=== PATIENT | female | born 1965 | race Caucasian/White ===

== ENCOUNTER → 2018-03-15 13:38 | Outpatient (CLI) | payer OTHER, SELFPAY ==
--- NOTE | 2018-03-15 | DI.MG.S_ITS ---
BILATERAL DIGITAL SCREENING MAMMOGRAM 3D/2D WITH CAD WITH AUGMENTATION: 03/15/2018 Comparison is made to exams dated: 12/25/2016 mammogram, 11/13/2015 mammogram, and 11/10/2014 mammogram - [facility]. There are scattered fibroglandular elements in both breasts. Current study was also evaluated with a Computer Aided Detection (CAD) system. Bilateral breast implants are intact. No significant masses, calcifications, or other findings are seen in either breast. There has been no significant interval change. IMPRESSION: NEGATIVE There is no mammographic evidence of malignancy. A 1 year screening mammogram is recommended. This exam was interpreted at Station ID: [id number]. NOTE: For mammograms, a report in lay terms will be sent to the patient. Approximately 15% of breast malignancies will not be visualized mammographically. In the management of a palpable breast mass, a negative mammogram must not discourage biopsy of a clinically suspicious lesion. Electronically Signed By: Jesenia davis/sea:03/16/2018 09:46:51 letter sent: Normal Exam ACR BI-RADS Category 1: Negative 3341F
== END ==
PROVIDERS: PCP Family Medicine; Visit Provider Family Medicine
DX: Z12.31 Encounter for screening mammogram for malignant neoplasm of breast (principal)
CPT/HCPCS: 77063; 77067

== ENCOUNTER → 2019-04-25 15:11 | Outpatient (CLI) | payer OTHER, SELFPAY ==
--- NOTE | 2019-04-25 | DI.MG.S_ITS ---
BILATERAL DIGITAL SCREENING MAMMOGRAM 3D/2D WITH CAD WITH AUGMENTATION: 04/25/2019 CLINICAL: Routine screening. Comparison is made to exams dated: 03/15/2018 mammogram, 12/25/2016 mammogram, 07/08/2016 mammogram, 11/22/2015 mammogram, and 11/13/2015 mammogram - [facility]. There are scattered fibroglandular elements in both breasts. Current study was also evaluated with a Computer Aided Detection (CAD) system. Bilateral breast implants are intact. No significant masses, calcifications, or other findings are seen in either breast. There has been no significant interval change. IMPRESSION: NEGATIVE There is no mammographic evidence of malignancy. A 1 year screening mammogram is recommended. This exam was interpreted at Station ID: [id number]. NOTE: For mammograms, a report in lay terms will be sent to the patient. Approximately 15% of breast malignancies will not be visualized mammographically. In the management of a palpable breast mass, a negative mammogram must not discourage biopsy of a clinically suspicious lesion. Electronically Signed By: Chris bear/sea:04/25/2019 16:05:13 letter sent: Normal Exam ACR BI-RADS Category 1: Negative 3341F
== END ==
PROVIDERS: PCP Family Medicine; Visit Provider Family Medicine
DX: Z12.31 Encounter for screening mammogram for malignant neoplasm of breast (principal)
CPT/HCPCS: 77063; 77067

== ENCOUNTER 2019-06-14 21:54 | Emergency (ER) | payer OTHER, SELFPAY ==
[2019-06-14 22:00] VITALS: BP 151/68; PULSE 58; RESP 18; TEMP 37.1; O2SAT 98
--- NOTE | 2019-06-14 22:01 | ED.CHESTPAIN ---
HPI - Chest Pain General Chief Complaint: Chest Pain Stated Complaint: chest pressure on and off Time Seen by Provider: 06/14/19 22:01 Source: patient Mode of arrival: Ambulatory Limitations: no limitations History of Present Illness HPI narrative: This is a 53-year-old female who comes in complaint of chest pain patient states she felt a squeezing like sensation in her heart for 20-30 minutes about 8:30 this evening. She states she was sitting on the couch when this occurred. She laid down it went away. She states it return to 2nd time but not as strong about 30 or 40 minutes later and continued until she arrived here. She states it is currently resolved. She states lying down seems to make it feel better. She felt a little bit dizzy but does not feel like she is going to pass out or off balance. She denies any tingling or weakness in her upper extremities, swelling in her extremities. She had a similar episode 10 years ago states she was ?checked out and everything was fine?. She denies any shortness of breath, no nausea, no vomiting no other symptoms at this time. She also has had a chronic sort of left abdominal pain for several years that has been worked up by her primary care and has not had the cause found. Patient states she did have caffeine today and she sometimes gets dizzy when she has caffeine and has a headache. She denies any other medical issues. Had a hysterectomy and shoulder surgery in the past, none recently. No tobacco, no alcohol or illicit. No family history cardiac issues other than hypertension in her father, no pulmonary issues or embolic issues. Father of colorectal cancer. States her mom smokes tobacco. Related Data Previous Rx's Medication Instructions Recorded estradiol 0.075 mg/24 hr 1 patch TRANSDERMAL 2XW #24 each 12/17/18 semiweekly transdermal patch Massage Therapy 1 each .ROUTE Q2W #1 each 01/12/19 Allergies Allergy/AdvReac Type Severity Reaction Status Date / Time amoxicillin [AMOXICILLIN] Allergy Mild Rash Unverified 12/17/18 16:01 Review of Systems Review of Systems ROS Unobtainable: All systems reviewed & are unremarkable except as noted in HPI and below Patient History Medical History Angela tumor of left ovary (Resolved) Ovarian cyst, right (Resolved) Reactive arthritis (Chronic) Shoulder pain (Chronic) 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 Patient appears anxious. HEENT: Head normocephalic, atraumatic, EOMI, pupils reactive, face symmetric, moist mucous membranes NECK: Supple, full range of motion CARDIOVASCULAR: Regular rate and rhythm without murmurs, rubs or gallops. Nontender palpation. No rashes or skin changes. RESPIRATORY: Breath sounds equal bilaterally, no wheezes rales or rhonchi. ABDOMEN: Soft, nontender. Normoactive bowel sounds all 4 quadrants. No guarding or rebound, rigidity, no mass : No CVA tenderness EXTREMITIES: Normal range of motion, no clubbing or edema. Neurovascularly intact NEUROLOGICAL: Cranial nerves II through XII grossly intact. Moving all extremities SKIN: Warm, dry, no petechiae, no rashes or lesions. Initial Vital Signs Initial Vital Signs: Vital Signs Temperature 98.7 F 06/14/19 22:00 Pulse Rate 58 L 06/14/19 22:00 Respiratory Rate 18 06/14/19 22:00 Blood Pressure 151/68 H 06/14/19 22:00 Pulse Oximetry 98 06/14/19 22:00 Scores HEART Score Heart Score history: Moderately Suspicious Heart Score EKG: Normal Heart Score Age: 45-64 years old Heart Score risk factors: No known risk factors Heart Score troponin: < or = to normal limit Heart Score Total: 2 Course Orders Ordered: ED Orders 06/14/19 22:03 XR chest 1V Stat EKG-12 Lead Stat 06/14/19 22:15 Complete Blood Count AUTO DIFF Stat Comprehensive Metabolic Panel Stat Lipase Stat Troponin & CK Cardiac Panel Stat Vital Signs Vital signs: Vital Signs - 8 hr 06/14/19 22:00 06/14/19 22:45 06/14/19 23:16 Temperature 98.7 F Pulse Rate 58 L 52 L 49 L Respiratory Rate 18 15 22 Blood Pressure 151/68 H Blood Pressure [Left Arm] 116/57 L 108/62 Pulse Oximetry 98 99 100 06/14/19 23:23 Temperature Pulse Rate 75 Respiratory Rate 28 H Blood Pressure 108/62 Blood Pressure [Left Arm] Pulse Oximetry 100 MDM - Chest Pain Lab Data Attestation: I reviewed the patient's lab results. Result diagrams: 06/14/19 22:15 06/14/19 22:15 Labs: Lab Results 06/14/19 06/14/19 Range/Units 22:15 22:15 WBC 8.4 (4.5-11.0) X10^3/uL RBC 4.34 (4.0-5.2) X10^6/uL Hgb 13.2 (12.0-16.0) g/dL Hct 38.9 (36-46) % MCV 89.6 (80-100) fL MCH 30.3 (26-34) PG MCHC 33.8 (30-36) % RDW 13.1 (11.6-14.8) % Plt Count 240 (150-400) X10^3/uL Neut % (Auto) 55.9 (50-75) % Lymph % (Auto) 34.2 (25-40) % [place] % (Auto) 7.7 (3-14) % Eos % (Auto) 1.5 L (2-4) % Baso % (Auto) 0.7 (0-2) % Neut # (Auto) 4700 (2990-3353) /uL Lymph # (Auto) 2900 (1761-5408) /uL [place] # (Auto) 600 (0-900) /uL Eos # (Auto) 100 (0-450) /uL Baso # (Auto) 100 (0-100) /uL Sodium 139 (137-145) mmol/L Potassium 3.9 (3.4-5.1) mmol/L Chloride 103 (98-107) mmol/L Carbon Dioxide 31 (22-32) mmol/L BUN 20 H (7-17) mg/dL Creatinine 1.10 H (0.52-1.04) mg/dL Estimated GFR 51.6 L (>60) mL/min BUN/Creatinine Ratio 18.2 (6-22) Glucose 121 H (70-100) mg/dL Calcium 9.6 (8.4-10.2) mg/dL Total Bilirubin 0.3 (0.2-1.3) mg/dL AST 28 (14-36) IU/L ALT 23 (<35) IU/L Alkaline Phosphatase 71 (38-126) U/L Total Creatine Kinase 69 (30-135) U/L CK-MB (CK-2) TNP CK-MB (CK-2) Rel Index TNP Troponin I < 0.012 (0.01-0.034) ng/mL Total Protein 7.4 (6.3-8.2) g/dL Albumin 4.3 (3.5-5.0) g/dL Globulin 3.1 (1.7-4.1) g/dL Albumin/Globulin Ratio 1.4 (1.0-2.8) Lipase 180 (23-300) U/L Imaging Data Chest x-ray: Attestation: I personally reviewed and interpreted this imaging study as follows: My Impression: nap. ECG Data Attestation: I personally reviewed and interpreted this ECG as follows: Prior ECG tracings: available for review Interpretation: Sinus bradycardia rate of 52 p.r. 132 QRS of 90 and QTC of 435. No ST elevation noted. In 0.5 mm depression in V4, not appreciated other leads. Patient's has prior EKG from 02/28/2016, there is motion artifact but majority leads appears similar. V2 does appear to have an RSR that is not noted on prior EKG. MDM Narrative Medical decision making narrative: Discussed with patient her heart score is 2 but I would like to repeat EKG and troponin at [facility] 2 hour praful. Her symptoms have resolved at this time. Patient defers due to financial at this time. We discussed that we cannot truly rule out any cardiac events or other causes completely at this time. We did review her lab work, EKG and chest x-ray. Patient is going to call her primary care 1st thing in the morning to set up follow-up to see about additional testing and we discussed that it would likely be appropriate for her to discuss stress testing as well. We did also discuss observation for chest pain overnight but she was clear while polite that this was not an acceptable alternative. Discharge Plan Departure Patient Disposition: Home Clinical Impression: Chest pain Qualifiers: Chest pain type: unspecified Qualified Code(s): R07.9 - Chest pain, unspecified Discharge Date/Time: 06/14/19 23:23 Instructions: DI for Chest Pain Activity Restrictions/Additional Instructions: Follow-up with Dr. Albright in the next several days call for an appointment or to talk with them about next steps. As you have elected not to stay do any repeat lab testing or EKGs if you are having any new or worsening symptoms you should return. Return to the ER for fevers greater 100.4 F, new shortness of breath, chest pain pressure, passing out, swelling in her extremities, persistent vomiting, black or bloody stools or other new or concerning symptoms. Prescriptions: No Action Massage Therapy 1 each .Route Q2W Qty: 1 RF: 0 estradiol 0.075 mg/24 hr patch semiweekly 1 patch transdermal 2XW Qty: 24 RF: 1 Referrals: Cassandra Albright DO [Primary Care Provider] -
--- NOTE | 2019-06-14 22:03 | DI.RAD.S_ITS ---
PROCEDURE: XR CHEST 1V INDICATIONS: chest pain TECHNIQUE: One view of the chest was acquired. COMPARISON: [facility], , CHEST 2 VIEW, 02/28/2016, 21:12. FINDINGS: Surgical changes and devices: None. Lungs and pleura: Lungs are clear. No pleural effusions or pneumothorax. Mediastinum: Mediastinal contours appear normal. Heart size is normal. Bones and chest wall: No suspicious bony lesions. Overlying soft tissues appear unremarkable. IMPRESSION: No acute cardiopulmonary pathology. Dictated by: Chance Joyce M.D. on 06/15/2019 at 8:30 Approved by: Chance Joyce M.D. on 06/15/2019 at 8:31
[2019-06-14 22:32] LABS: Add Manual Diff / Slide Review NO; Basophils Absolute Auto 100 /uL (0-100); Basophils Percent Auto 0.7 % (0-2); Eosinophils Absolute Auto 100 /uL (0-450); Eosinophils Percent Auto 1.5 % (2-4); Hematocrit 38.9 % (36-46); Hemoglobin 13.2 g/dL (12.0-16.0); Lymphocytes Absolute Auto 2900 /uL (1100-4500); Lymphocytes Percent Auto 34.2 % (25-40); Mean Corpuscular HGB Conc 33.8 % (30-36); Mean Corpuscular Hemoglobin 30.3 PG (26-34); Mean Corpuscular Volume 89.6 fL (80-100); Monocytes Absolute Auto 600 /uL (0-900); Monocytes Percent Auto 7.7 % (3-14); Neutrophils Absolute Auto 4700 /uL (1500-7000); Neutrophils Percent Auto 55.9 % (50-75); Platelet Count 240 X10^3/uL (150-400); Red Blood Cell Count 4.34 X10^6/uL (4.0-5.2); Red Cell Distribution Width 13.1 % (11.6-14.8); White Blood Cell Count 8.4 X10^3/uL (4.5-11.0)
[2019-06-14 22:37] LABS: Alanine Aminotransferase 23 IU/L (<35); Albumin 4.3 g/dL (3.5-5.0); Albumin Globulin Ratio 1.4 (1.0-2.8); Alkaline Phosphatase 71 U/L (38-126); Aspartate Aminotransferase 28 IU/L (14-36); BUN Creatinine Ratio 18.2 (6-22); Bilirubin Total 0.3 mg/dL (0.2-1.3); Blood Urea Nitrogen 20 mg/dL (7-17); Calcium 9.6 mg/dL (8.4-10.2); Carbon Dioxide 31 mmol/L (22-32); Chloride 103 mmol/L (98-107); Creatine Kinase 69 U/L (30-135); Estimated Glomerular Filt Rate 51.6 mL/min (>60); Globulin 3.1 g/dL (1.7-4.1); Glucose 121 mg/dL (70-100); HEMOLYSIS < 15 (0-50); Lipase 180 U/L (23-300); Potassium 3.9 mmol/L (3.4-5.1); Sodium 139 mmol/L (137-145); Total Protein 7.4 g/dL (6.3-8.2)
[2019-06-14 22:45] VITALS: BP 116/57; PULSE 52; RESP 15; O2SAT 99
[2019-06-14 22:48] LABS: Troponin I < 0.012 ng/mL (0.01-0.034)
[2019-06-14 23:16] VITALS: BP 108/62; PULSE 49; RESP 22; O2SAT 100
[2019-06-14 23:23] VITALS: BP 108/62; PULSE 75; RESP 28; O2SAT 100
== END 2019-06-14 23:23 | disposition home or self-care (01) ==
PROVIDERS: Emergency Provider Emergency Medicine; PCP Family Medicine
DX: R07.9 Chest pain, unspecified (principal)
CPT/HCPCS: 36415; 71045; 80053; 82550; 83690; 84484; 85025; 93005; 99284

== ENCOUNTER → 2020-05-01 16:56 | Outpatient (CLI) | payer OTHER, SELFPAY ==
--- NOTE | 2020-05-01 16:58 | DI.MG.S_ITS ---
BILATERAL DIGITAL SCREENING MAMMOGRAM 3D/2D WITH CAD WITH AUGMENTATION: 05/01/2020 CLINICAL: Routine screening. Comparison is made to exams dated: 04/25/2019 mammogram, 03/15/2018 mammogram, and 12/25/2016 mammogram - [facility]. There are scattered fibroglandular elements in both breasts. Current study was also evaluated with a Computer Aided Detection (CAD) system. There is a possible developing focal asymmetry in the left breast at 8 o'clock anterior depth. No other significant masses, calcifications, or other findings are seen in either breast. IMPRESSION: INCOMPLETE: NEEDS ADDITIONAL IMAGING EVALUATION The possible developing focal asymmetry in the left breast is indeterminate. Additional views with possible ultrasound are recommended. This exam was interpreted at Station ID: [id number]. NOTE: For mammograms, a report in lay terms will be sent to the patient. Approximately 15% of breast malignancies will not be visualized mammographically. In the management of a palpable breast mass, a negative mammogram must not discourage biopsy of a clinically suspicious lesion. Electronically Signed By: Axel keith/sea:05/02/2020 07:47:05 letter sent: Additional Imaging Needed ACR BI-RADS Category 0: Incomplete 3340F
== END ==
PROVIDERS: PCP Family Medicine; Referring Provider Family Medicine; Visit Provider Family Medicine
DX: Z12.31 Encounter for screening mammogram for malignant neoplasm of breast (principal)
CPT/HCPCS: 77063; 77067

== ENCOUNTER → 2020-06-04 08:34 | Outpatient (CLI) | payer OTHER, SELFPAY ==
--- NOTE | 2020-06-04 | DI.MG.S_ITS ---
UNILATERAL LEFT DIGITAL DIAGNOSTIC MAMMOGRAM 3D/2D WITH ADDITIONAL VIEWS WITH AUGMENTATION: 06/04/2020 CLINICAL: Additional evaluation requested from prior study. Comparison is made to exams dated: 05/01/2020 mammogram, 04/25/2019 mammogram, and 03/15/2018 mammogram - [facility]. There are scattered fibroglandular elements in left breast. There is an oval low density focal asymmetry with an indistinct and circumscribed margin in the left breast at 6 o'clock anterior depth. This is less prominent. No other significant masses or calcifications are seen in the breast. IMPRESSION: INCOMPLETE: NEEDS ADDITIONAL IMAGING EVALUATION The oval low density focal asymmetry in the left breast is indeterminate. An ultrasound is recommended. Ultrasound will be performed immediately following the current exam. This exam was interpreted at Station ID: [id number]. NOTE: For mammograms, a report in lay terms will be sent to the patient. Approximately 15% of breast malignancies will not be visualized mammographically. In the management of a palpable breast mass, a negative mammogram must not discourage biopsy of a clinically suspicious lesion. Electronically Signed By: Chris Vivas M.D. ddjanett/:06/04/2020 08:57:07 ACR BI-RADS Category 0: Incomplete [id number]
--- NOTE | 2020-06-04 08:34 | DI.US.S_ITS ---
LIMITED ULTRASOUND OF LEFT BREAST: 06/04/2020 CLINICAL: Patient returns today to evaluate a focal asymmetry in the left breast. Comparison is made to exams dated: 05/01/2020 mammogram, 06/04/2020 mammogram, 04/25/2019 mammogram, 03/15/2018 mammogram, 12/25/2016 mammogram, and 07/08/2016 [facility]. Color flow and real-time ultrasound of the left breast 6 o'clock, and retroareolar regions were performed on the areas of interest. There is a 0.6 cm x 0.6 cm x 0.4 cm oval cyst with a septated internal wall in the left breast at 6 o'clock in the retroareolar region. This oval cyst is hypoechoic with posterior acoustic enhancement. This correlates with mammography findings. Color flow imaging demonstrates that there is no vascularity present. IMPRESSION: PROBABLY BENIGN The 0.6 cm x 0.6 cm x 0.4 cm oval cyst in the left breast is consistent with a complicated cyst and is probably benign. A follow-up ultrasound in 6 months is recommended. A follow-up ultrasound in 6 months is recommended to demonstrate stability. This exam was interpreted at Station ID: [id number]. Electronically Signed By: Chris bear/:06/04/2020 09:19:27 letter sent: Followup Recommended Ultrasound BI-RADS: 3 Probably benign
== END ==
PROVIDERS: PCP Family Medicine; Referring Provider Family Medicine; Visit Provider Family Medicine
DX: R92.8 Other abnormal and inconclusive findings on diagnostic imaging of breast (principal); N60.02 Solitary cyst of left breast
CPT/HCPCS: 76642; 77065; G0279

== ENCOUNTER → 2020-11-28 15:35 | Outpatient (CLI) | payer OTHER, SELFPAY ==
--- NOTE | 2020-11-28 15:36 | DI.US.S_ITS ---
LIMITED ULTRASOUND OF LEFT BREAST: 11/28/2020 CLINICAL: Patient returns today to evaluate an asymmetry in the left breast. Comparison is made to exams dated: 06/04/2020 ultrasound, 06/04/2020 mammogram, 05/01/2020 mammogram, 04/25/2019 mammogram, 03/15/2018 mammogram, and 12/25/2016 mammogram - [facility]. Color flow and real-time ultrasound of the left breast 6 o'clock region were performed. Bowens scale images of the real-time examination were reviewed. There is a 0.6 cm x 0.5 cm x 0.3 cm oval cyst in the left breast at 6 o'clock in the retroareolar region. This oval cyst is hypoechoic with an abrupt boundary and posterior acoustic enhancement. It has decreased in its internal echos. Size is stable. Color flow imaging demonstrates that there is no vascularity present. IMPRESSION: PROBABLY BENIGN The 0.6 cm mildly complicated cyst in the left breast has become more anechoic, is stable size, and is probably benign. A follow-up left ultrasound in 6 months is recommended to demonstrate stability. The patient will be due for bilateral mammograms at that same visit. Findings and recommendations were conveyed to the patient at time of exam. This exam was interpreted at Station ID: [id number]. Electronically Signed By: Annabelle siddiqui/:11/28/2020 16:34:08 letter sent: Followup Recommended Ultrasound BI-RADS: 3 Probably benign
== END ==
PROVIDERS: PCP Family Medicine; Referring Provider Family Medicine; Visit Provider Family Medicine
DX: R92.8 Other abnormal and inconclusive findings on diagnostic imaging of breast; N60.02 Solitary cyst of left breast
CPT/HCPCS: 76642

== ENCOUNTER → 2021-05-23 08:51 | Outpatient (CLI) | payer OTHER, SELFPAY ==
--- NOTE | 2021-05-23 | DI.MG.S_ITS ---
BILATERAL DIGITAL DIAGNOSTIC MAMMOGRAM 3D/2D WITH AUGMENTATION: 05/23/2021 CLINICAL: Short term follow up of the left breast, due for bilateral imaging. Comparison is made to exams dated: 11/28/2020 ultrasound, 06/04/2020 ultrasound, 06/04/2020 mammogram, 05/01/2020 mammogram, 04/25/2019 mammogram, and 03/15/2018 mammogram - [facility]. There are scattered fibroglandular elements in both breasts. There is an oval low density focal asymmetry with an indistinct and circumscribed margin in the left breast at 6 o'clock anterior depth. This is less prominent. No other significant masses, calcifications, or other findings are seen in either breast. IMPRESSION: INCOMPLETE: NEEDS ADDITIONAL IMAGING EVALUATION The oval low density focal asymmetry in the left breast is indeterminate. An ultrasound is recommended. This exam was interpreted at Station ID: [id number]. NOTE: For mammograms, a report in lay terms will be sent to the patient. Approximately 15% of breast malignancies will not be visualized mammographically. In the management of a palpable breast mass, a negative mammogram must not discourage biopsy of a clinically suspicious lesion. Electronically Signed By: Axel keith/sea:05/23/2021 10:42:58 ACR BI-RADS Category 0: Incomplete 3340F
--- NOTE | 2021-05-23 08:53 | DI.US.S_ITS ---
LIMITED ULTRASOUND OF LEFT BREAST: 05/23/2021 CLINICAL: 6 month follow-up of cysts. Comparison is made to exams dated: 05/23/2021 mammogram, 11/28/2020 ultrasound, 06/04/2020 ultrasound, 06/04/2020 mammogram, 05/01/2020 mammogram, and 04/25/2019 mammogram - [facility]. Color flow ultrasound of the left breast 6 o'clock region was performed. Bowens scale images of the real-time examination were reviewed. There is a stable 0.3 cm x 0.3 cm x 0.3 cm oval cyst in the left breast at 6 o'clock in the retroareolar region. This oval cyst is hypoechoic with an abrupt boundary and posterior acoustic enhancement. This abnormality is decreased in size. Color flow imaging demonstrates that there is no vascularity present. IMPRESSION: PROBABLY BENIGN The stable 0.3 cm x 0.3 cm x 0.3 cm oval cyst in the left breast is consistent with a complicated cyst and is probably benign. A follow-up mammogram and an ultrasound in 12 months is recommended. This exam was interpreted at Station ID: [id number]. Electronically Signed By: Axel keith/sea:05/23/2021 10:45:54 letter sent: Followup Recommended Ultrasound BI-RADS: 3 Probably benign
== END ==
PROVIDERS: PCP Family Medicine; Referring Provider Family Medicine; Visit Provider Family Medicine
DX: N60.02 Solitary cyst of left breast (principal); R92.8 Other abnormal and inconclusive findings on diagnostic imaging of breast
CPT/HCPCS: 76642; 77066; G0279

== ENCOUNTER → 2021-06-26 08:54 | Outpatient (CLI) | payer OTHER, SELFPAY ==
[2021-06-26 10:59] LABS: COVID19 -Nasal RAPID Negative (Negative)
== END ==
PROVIDERS: PCP Family Medicine; Visit Provider Surgery
DX: Z01.812 Encounter for preprocedural laboratory examination (principal); Z20.822 Contact with and (suspected) exposure to COVID-19
CPT/HCPCS: 87635; C9803

== ENCOUNTER 2021-06-27 07:23 | Day surgery (SDC) | payer OTHER, SELFPAY ==
[2021-06-27 07:39] VITALS: BP 111/68; PULSE 72; RESP 18; TEMP 36.1; O2SAT 97
[2021-06-27 07:40] VITALS: BMI 24.7
[2021-06-27] MEDS: LACTATED RINGERS 1,000 ML 42 ML IV (07:50)
--- NOTE | 2021-06-27 09:02 | P.HP_ITS ---
History of Present Illness History of Present Illness Date Patient Seen: 06/27/21 Time Patient Seen: 09:03 Chief complaint: [facility] Narrative: Shraddha Moise is a 55-year-old woman who is due for colonoscopy. Her last was 7 years ago. She reports occasional left upper quadrant pain under the ribcage and occasional pressure and discomfort in her rectal area. 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) Surgical History History of breast augmentation (2003) History of left salpingo-oophorectomy (2007) Status post hysterectomy with oophorectomy (04/2009) Family & Social History Family History Father Hypertension Hyperlipidemia Colon cancer Mother Age: 78 Tobacco abuse Grandmother Bone cancer Social History: household members none Tobacco & Substance use: Smoking Status Never smoker alcohol intake current alcohol intake frequency a few times a month Substance Use Type does not use Meds Home Medications and Allergies Home Medications Medication Instructions Recorded Confirmed Type Massage Therapy 1 each .ROUTE Q2W #1 each 01/12/19 04/22/21 Rx methylphenidate HCl 20 mg tablet 40 mg PO BID #120 tab 05/27/21 06/27/21 Rx Allergies Allergy/AdvReac Type Severity Reaction Status Date / Time amoxicillin [AMOXICILLIN] Allergy Mild Rash Verified 06/27/21 07:04 Exam Vital Signs (past 8 hours): - 06/27/21 07:39 Temperature 97 F L Pulse Rate 72 Respiratory Rate 18 Blood Pressure 111/68 Pulse Oximetry 97 Oxygen Delivery Method Room Air Const General: healthy appearing Resp Effort & Inspection: normal respiratory effort GI Palpation: soft Assessment & Plan Assessment and plan (1) Colon cancer screening: Status: Acute Plan We will proceed with colonoscopy for colon cancer screening. We reviewed the risks and benefits and she would like to proceed. I would like to see her back in the office in a few weeks to discuss her other abdominal complaints and potentially we can schedule her for an EGD at a later date. COVID-19 COVID-19 status: Negative Result date/Date tested (Pos, Neg/Pending): 06/26/21 Time Spent With Patient Critical Care time: I spent a total of [] minutes of critical care time on this patient's care today; this time is exclusive of procedural time.
[2021-06-27] MEDS: fentaNYL 250 MCG/5 ML INJ IV (09:04)
[2021-06-27] MEDS: MIDAZOLAM 5 MG/5 ML VIAL IV (09:04)
[2021-06-27] MEDS: ONDANSETRON 4 MG/2 ML INJ IV (09:10)
--- NOTE | 2021-06-27 09:33 | PM.OP.COLON ---
Operative Date/Time/Diagnoses Date of procedure: 06/27/21 Time of procedure: 09:33 Pre-op diagnosis: Colon cancer screening Post-op diagnosis: same Procedure & Clinicians Study performed: Colonoscopy Same procedure as scheduled: Yes Surgeon: Juan Francisco Pearson Procedure Notes SCOAP/Timeout: Yes Procedure in detail: Procedure: The patient was brought to the endoscopy suite, placed in left lateral decubitus position. The patient was connected to monitoring devices. A time-out was performed. Sedation was administered. Once the patient was adequately sedated, a digital rectal exam was performed and was normal. The scope was then inserted and advanced to the cecum where the appendiceal orifice was identified and photographed. The scope was then slowly withdrawn over greater than 6 minutes. Mucosa was thoroughly inspected. There were a few scattered diverticula in the right colon. The scope was retroflexed in the rectum. No abnormalities were noted. The scope was straightened and removed. The patient was awakened and brought to recovery. Versed: 7 mg Fentanyl: 175 mcg EBL: 0 Findings: Essentially normal colon Scope withdrawal time: 10 Sedation minutes: 24 Post-procedure Recommendations: Colonoscopy in 10 years
[2021-06-27 09:35] VITALS: BP 96/55; PULSE 55; RESP 12; TEMP 36.4; O2SAT 96
[2021-06-27 09:40] VITALS: BP 96/31; PULSE 58; RESP 16; O2SAT 95
[2021-06-27 09:45] VITALS: BP 88/42; PULSE 75; RESP 16; O2SAT 95
[2021-06-27 09:50] VITALS: BP 96/60; PULSE 55; RESP 12; O2SAT 95
[2021-06-27 09:59] VITALS: BP 103/60; PULSE 51; RESP 16; O2SAT 95
== END 2021-06-27 10:14 | disposition home or self-care (01) ==
LOC: ENDO 07:25
PROVIDERS: PCP Family Medicine; Referring Provider Surgery; Visit Provider Surgery
PROC: 0DJD8ZZ Inspection of Lower Intestinal Tract, Via Natural or Artificial Opening Endoscopic (ICD-10-PCS; CPT 45378; principal; 2021-06-27 08:30)
DX: Z12.11 Encounter for screening for malignant neoplasm of colon (principal); K57.30 Diverticulosis of large intestine without perforation or abscess without bleeding
CPT/HCPCS: 45378; 99152; J2250; J2405; J3010

== ENCOUNTER → 2021-10-02 09:52 | Outpatient (CLI) | payer OTHER, SELFPAY ==
--- NOTE | 2021-10-02 09:53 | DI.RAD.S_ITS ---
PROCEDURE: FL UPPER GI SMALL BOWEL INDICATIONS: ulcer screening COMPARISON: None. FINDINGS: KUB: Preprocedural product control and logistics analyst film shows a normal bowel gas pattern. No suspicious abdominal calcifications. Visualized solid organ contours appear normal in size. No suspicious bony abnormalities. Esophagus: Air-contrast views demonstrate a normal mucosal pattern. On single-contrast views, there is mild tertiary contraction waves in the mid and distal esophagus.. No fixed strictures, extrinsic mass effects, or diverticula. No hiatal hernias or elicited gastroesophageal reflux. There is normal transit of a calibrated barium tablet through the esophagus. Stomach: The gastric lumen is normally distensible, and has normal rugal fold thickness. No mucosal masses or ulcers. The pylorus and duodenal bulb have a normal morphology. Small bowel: Duodenal folds are diffusely thickened without significant irregularity. There is a small, approximately 1.3 by 1.6 centimeter diverticulum involving the medial margin of the 2nd portion the duodenum. There is normal transit time of barium through the small intestine. Small bowel loops appear normal in caliber throughout. Jejunal and ileal folds are smooth and normal in thickness. No strictures, intraluminal masses, or extrinsic mass effects. The terminal ileum is identified and appears normal. IMPRESSION: 1. Duodenal fold thickening. Finding may represent duodenitis or infiltrating process. Recommend gastroenterology consultation for endoscopy and potential biopsy. 2. Small duodenal diverticulum. 3. Minimal esophageal dysmotility. 4. No gastric or duodenal ulcer identified. Dictated by: Zaina Nichols MD, PhD on 10/02/2021 at 14:39 Approved by: Zaina Nichols MD, PhD on 10/02/2021 at 14:50
== END ==
PROVIDERS: PCP Pediatrics; Referring Provider Pediatrics; Visit Provider Pediatrics
DX: K57.10 Diverticulosis of small intestine without perforation or abscess without bleeding (principal); R10.9 Unspecified abdominal pain
CPT/HCPCS: 74240; 74248

== ENCOUNTER → 2022-01-29 12:58 | Outpatient (CLI) | payer OTHER, SELFPAY ==
--- NOTE | 2022-01-29 | DI.CT.S_ITS ---
PROCEDURE: CT ABDOMEN WO CON INDICATIONS: Left upper quadrant pain TECHNIQUE: After the administration of oral contrast, 5 mm thick sections acquired from the diaphragms to the iliac crests. 5 mm coronal and sagittal reformats were then performed. For radiation dose reduction, the following was used: automated exposure control, adjustment of mA and/or kV according to patient size. COMPARISON: [facility], CT, ABDOMEN/PELVIS WITH CONTRAST, 02/15/2016, 17:25. FINDINGS: Image quality: Excellent. Evaluation of the solid parenchymal organs is limited without IV contrast. Lung bases: Lung bases are clear. Breast implants. Heart size is normal. Solid organs: Liver is normal in size. Gallbladder is unremarkable . Pancreas is normal in contours. No peripancreatic fluid collection. Spleen is normal in size. No adrenal nodules. Both kidneys are normal in size, without hydronephrosis or nephrolithiasis. Peritoneum and bowel: Bowel loops demonstrate normal wall thickness and caliber. The appendix is not dilated. No free fluid or air. Nodes and vessels: No retroperitoneal or mesenteric adenopathy by size criteria. Aorta and inferior vena cava are normal in size. Bones: No suspicious bony lesions. Multilevel DDD. No vertebral body compression fractures. Miscellaneous: No ventral hernias. IMPRESSION: No acute abnormality identified. No free fluid. Dictated by: Rolando Spear M.D. on 01/29/2022 at 14:11 Approved by: Rolando Spear M.D. on 01/29/2022 at 14:17
== END ==
PROVIDERS: PCP Pediatrics; Referring Provider Internal Medicine Gastroenterology; Visit Provider Internal Medicine Gastroenterology
DX: R10.12 Left upper quadrant pain (principal); R93.3 Abnormal findings on diagnostic imaging of other parts of digestive tract
CPT/HCPCS: 74150

== ENCOUNTER → 2022-02-04 11:28 | Outpatient (CLI) | payer OTHER, SELFPAY ==
[2022-02-04 14:00] LABS: Influenza A - CEPHEID Flu A NEGATIVE (NEGATIVE); Influenza B - CEPHEID Flu B NEGATIVE (NEGATIVE); Respiratory Syncytial Virus Negative (Negative)
[2022-02-04 15:04] LABS: COVID-19 CEPHEID 4-PLEX PCR Negative (Negative)
== END ==
PROVIDERS: PCP Family Medicine; Visit Provider Registered Nurse
DX: R05.9 Cough, unspecified (principal)
CPT/HCPCS: 0241U

== ENCOUNTER → 2022-02-28 09:21 | Outpatient (CLI) | payer OTHER, SELFPAY ==
[2022-02-28 11:38] LABS: COVID19 -Nasal RAPID Negative (Negative)
== END ==
PROVIDERS: PCP Family Medicine; Visit Provider Surgery
DX: Z20.822 Contact with and (suspected) exposure to COVID-19 (principal); Z01.812 Encounter for preprocedural laboratory examination
CPT/HCPCS: 87635; C9803

== ENCOUNTER 2022-03-03 08:21 | Day surgery (SDC) | payer OTHER, SELFPAY ==
--- NOTE | 2022-03-03 | PATH_ITS ---
[facility] Accession Number: [id number] . 01 Material submitted: . PART A: duodenum - DUODENUM BIOPSY PART B: gastrointestinal site - ANTRUM BIOPSY . 01 Diagnosis: A. Duodenum, Biopsy: Duodenal mucosa with no diagnostic abnormality. Negative for active inflammation, features of sprue, dysplasia, or malignancy. . B. Antrum, Biopsy: Gastric antral mucosa with no diagnostic abnormality. No evidence of Helicobacter organisms on H/E stain. Negative for intestinal metaplasia. Negative for dysplasia or malignancy. MRV 03/05/2022 1248 Local . 01 Electronically signed: . Seun Siegel MD, PhD, Pathologist NPI- [id number] . 01 Gross description: . Part A: DUODENUM BIOPSY: Received in formalin are 4 fragment(s) of guerrero, soft tissue measuring 0.1 x 0.1 x 0.1 cm to 0.3 x 0.3 x 0.2 cm submitted entirely in 1 cassette(s) Part B: ANTRUM BIOPSY: Received in formalin are 3 fragment(s) of guerrero, soft tissue measuring 0.1 x 0.1 x 0.1 cm to 0.3 x 0.3 x 0.2 cm submitted entirely in 1 cassette(s) /RADHA 03/04/2022 0058 Local . 01 Pathologist provided ICD-10: R10.12 . 01 CPT . 545783, [id number] Specimen Comment: A courtesy copy of this report has been sent to [phone] Performed at: 01 [facility] [address] [place] [address] [address], [place], [place] [id number] MD Chris Fuentes MD Phone: [phone]
[2022-03-03 08:43] VITALS: BP 104/71; PULSE 60; RESP 18; TEMP 36.6; O2SAT 97; BMI 24.3
--- NOTE | 2022-03-03 09:03 | PM.HP.1 ---
History of Present Illness History of Present Illness Date Patient Seen: 03/03/22 Time Patient Seen: 09:03 Chief complaint: EGD W/POSS BX Narrative: I reviewed the recent office note by Dr. Shannon. No significant changes with the exception of improvement in the globus sensation when omeprazole is used. 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) Surgical History History of breast augmentation (2003) History of left salpingo-oophorectomy (2007) Status post hysterectomy with oophorectomy (04/2009) Family & Social History Family History Father Hypertension Hyperlipidemia Colon cancer Mother Age: 80 Tobacco abuse Grandmother Bone cancer Social History: household members none Tobacco & Substance use: Smoking Status Never smoker alcohol intake current alcohol intake frequency a few times a month Substance Use Type does not use Meds Home Medications and Allergies Home Medications Medication Instructions Recorded Confirmed Type Massage Therapy 1 each .Route Q2W #1 ea 01/12/19 03/03/22 Rx omeprazole 20 mg capsule,delayed 20 mg PO BID #180 caps 10/29/21 03/03/22 Rx release methylphenidate HCl 20 mg tablet See Rx Instructions PO .COMPLEX 01/31/22 03/03/22 Rx #90 tabs Allergies Allergy/AdvReac Type Severity Reaction Status Date / Time amoxicillin [AMOXICILLIN] Allergy Mild Rash Verified 03/03/22 09:01 Review of Systems Review of Systems ROS: Yes All systems reviewed with the patient and are negative except as otherwise documented Exam Vital Signs (past 8 hours): - 03/03/22 08:43 Temperature 97.8 F Pulse Rate 60 Respiratory Rate 18 Blood Pressure 104/71 Pulse Oximetry 97 Oxygen Delivery Method Room Air Oxygen Delivery Method Room Air Const General: cooperative HENMT Head: normal to inspection Eyes General: appearance normal, both eyes and all related structures Neck Neck: normal visual inspection Chest Chest: normal inspection of the chest Resp Effort & Inspection: normal respiratory effort Cardio Rate: regular rate GI Inspection: normal to inspection Skin General: no rashes or lesions noted Neuro General: patient alert and patient awake Extrem General: normal to inspection and no pedal edema Psych Appearance: grossly normal Assessment & Plan Assessment & Plan narrative: 56-year-old female with globus sensation, chronic left upper quadrant discomfort/pain, abnormal imaging with duodenal thickening seen on upper GI series. EGD is pursued today. Time Spent With Patient Critical Care time: I spent a total of [] minutes of critical care time on this patient's care today; this time is exclusive of procedural time.
[2022-03-03 09:04] VITALS: BMI 24.3
--- NOTE | 2022-03-03 09:06 | PM.PREOP ---
Pre-operative Note COVID-19 COVID-19 status: Negative Result date/Date tested (Pos, Neg/Pending): 02/28/22 Criteria for continued procedure: Possibility delay results in more complex future surgery or treatment Interval Note History & Physical reviewed/Exam performed by Physician: Yes Changes to H&P: Yes ASA Class (for procedural sedation): II
[2022-03-03] MEDS: SODIUM CHLORIDE 0.9% 1,000 ML 84 ML IV (09:08)
--- NOTE | 2022-03-03 10:05 | P.OP.EGD_ITS ---
Operative Date/Time/Diagnoses Date of procedure: 03/03/22 Time of procedure: 10:06 Pre-op diagnosis: Globus, left upper quadrant pain, abnormal imaging with duodenal thickening Post-op diagnosis: same Procedure & Clinicians Study performed: EGD with biopsies Same procedure as scheduled: Yes Indications: Globus, left upper quadrant pain, abnormal imaging with duodenal thickening Surgeon: Tre Melo Procedure Notes SCOAP/Timeout: Done Procedure in detail: After the risks and benefits were explained, written and verbal informed consent was obtained. The patient was brought into the procedure room and placed into the left lateral decubitus position. Please see nurse information systems analyst notes for sedation details. The scope was introduced into the mouth through the bite block and advanced under direct visualization to the 2nd portion of the duodenum. The scope was slowly withdrawn carefully examining the mucosa for any defects or lesions. Retroflexed views were accomplished in the stomach. The stomach was decompressed, the scope was then removed from the patient who tolerated the procedure well. Sedation minutes: 11 Complications: none Impression: 1. Duodenum: There were a few scattered areas of erythema and subtle erosion in the bulb but otherwise the mucosa appeared normal throughout well into the 2nd p ortion. Random D2 biopsies were taken 2. Stomach: No outlet obstruction no mass lesions. There were scattered erosions noted in the stomach most prominently in the antrum. These areas were targeted for histology and exclusion of H pylori infection. Otherwise retroflexed views of the LES were unremarkable. No significant gastric mucosal pathology otherwise appreciated. 3. Esophagus: The squamocolumnar junction correlated with the top of the gastric folds. GEJ was at 41 cm from the incisors. No acute erosive changes no strictures no mass lesions. No significant pathology appreciated throughout the esophagus. Endoscopic diagnosis 1. Erosive gastropathy and proximal duodenopathy 2. Otherwise visually unremarkable EGD Post-procedure Plan for aftercare: 1. Await histopathology. 2. Continue omeprazole for the globus symptoms. 3. Consider a fiber based bowel regimen with Metamucil twice daily. Disposition: PACU
[2022-03-03 10:07] VITALS: BP 97/50; PULSE 53; RESP 14; TEMP 36.9; O2SAT 96
[2022-03-03 10:12] VITALS: BP 94/56; PULSE 53; RESP 20; O2SAT 97
[2022-03-03 10:17] VITALS: BP 104/55; PULSE 58; RESP 16; O2SAT 96
[2022-03-03 10:22] VITALS: BP 109/57; PULSE 54; RESP 16; TEMP 36.5; O2SAT 98
[2022-03-03 10:30] VITALS: BP 104/56; PULSE 53; RESP 14; TEMP 36.5; O2SAT 98
== END 2022-03-03 10:42 | disposition home or self-care (01) ==
PROVIDERS: PCP Registered Nurse Diabetes Educator; Referring Provider Internal Medicine Gastroenterology; Visit Provider Internal Medicine Gastroenterology
PROC: 0DJ08ZZ Inspection of Upper Intestinal Tract, Via Natural or Artificial Opening Endoscopic (ICD-10-PCS; CPT 43235; principal; 2022-03-03 09:30)
DX: F45.8 Other somatoform disorders (principal); R93.3 Abnormal findings on diagnostic imaging of other parts of digestive tract; R10.12 Left upper quadrant pain; K31.9 Disease of stomach and duodenum, unspecified
CPT/HCPCS: 43239; J2704; J3010

== ENCOUNTER → 2022-07-09 13:27 | Outpatient (CLI) | payer OTHER, SELFPAY ==
--- NOTE | 2022-07-09 | DI.MG.S_ITS ---
BILATERAL DIGITAL DIAGNOSTIC MAMMOGRAM 3D/2D WITH AUGMENTATION: 07/09/2022 CLINICAL: Short term follow up of the left breast, due for bilateral imaging. Comparison is made to exams dated: 05/23/2021 mammogram, 06/04/2020 mammogram, and 05/01/2020 mammogram - [facility]. There are scattered areas of fibroglandular density in both breasts (category b / 25%-50% glandular tissue). The focal asymmetry in the left breast at 6 o'clock anterior depth is not definitely seen on the current study, and may have resolved. No other significant masses, calcifications, or other findings are seen in either breast. IMPRESSION: INCOMPLETE: NEEDS ADDITIONAL IMAGING EVALUATION The previously seen focal asymmetry in the left breast is indeterminate. A targeted ultrasound of the left breast is recommended and will be performed immediately following this exam. Based on the Tyrer Cuzick model (a risk assessment model) the patient's lifetime risk is 7.9% and her 10 year risk is 3.0%. According to the ACR, ACS, and NCCN guidelines, an annual breast MRI exam along with mammogram is recommended if the patient's lifetime risk is 20% or greater. This exam was interpreted at Station ID: [id number]. NOTE: For mammograms, a report in lay terms will be sent to the patient. Approximately 15% of breast malignancies will not be visualized mammographically. In the management of a palpable breast mass, a negative mammogram must not discourage biopsy of a clinically suspicious lesion. Electronically Signed By: Jesenia Raymundo M.D. lk/:07/09/2022 14:32:44 ACR BI-RADS Category 0: Incomplete 3340F
--- NOTE | 2022-07-09 | DI.US.S_ITS ---
LIMITED ULTRASOUND OF LEFT BREAST AND AXILLA: 07/09/2022 CLINICAL: Left breast follow up. Comparison is made to exams dated: 07/09/2022 mammogram, 05/23/2021 ultrasound, 05/23/2021 mammogram, 11/28/2020 ultrasound, 06/04/2020 ultrasound, and 06/04/2020 mammogram - [facility]. Color flow ultrasound of the left breast axilla was performed on the areas of interest. Bowens scale images of the real-time examination were reviewed. The previously vizualized cyst in the left breast at 6 o'clock anterior depth is no longer seen. IMPRESSION: BENIGN There is no sonographic evidence of malignancy. Return to annual mammogram screening schedule is recommended. This exam was interpreted at Station ID: [id number]. Electronically Signed By: Jesenia davis/:07/09/2022 15:22:37 letter sent: Normal Exam Ultrasound BI-RADS: 2 Benign
== END ==
PROVIDERS: PCP Registered Nurse Diabetes Educator; Referring Provider Registered Nurse Diabetes Educator; Visit Provider Registered Nurse Diabetes Educator
DX: R92.8 Other abnormal and inconclusive findings on diagnostic imaging of breast (principal)
CPT/HCPCS: 76642; 77066; G0279

== ENCOUNTER → 2023-07-13 16:43 | Outpatient (CLI) | payer OTHER, SELFPAY ==
--- NOTE | 2023-07-13 | DI.MG.S_ITS ---
BILATERAL DIGITAL SCREENING MAMMOGRAM 3D/2D WITH CAD WITH AUGMENTATION: 07/13/2023 CLINICAL: Routine screening. Comparison is made to exams dated: 07/09/2022 mammogram, 05/23/2021 mammogram, and 05/01/2020 mammogram - [facility]. Both breasts are heterogeneously dense, which may obscure small masses (category c / 51-75% glandular tissue). Current study was also evaluated with a Computer Aided Detection (CAD) system. Bilateral breast implants are stable and intact. No significant masses, calcifications, or other findings are seen in either breast. There has been no significant interval change. IMPRESSION: NEGATIVE There is no mammographic evidence of malignancy. A 1 year screening mammogram is recommended. Based on the Tyrer Cuzick model (a risk assessment model) the patient's lifetime risk is 11.7% and her 10 year risk is 4.6%. According to the ACR, ACS, and NCCN guidelines, an annual breast MRI exam along with mammogram is recommended if the patient's lifetime risk is 20% or greater. This exam was interpreted at Station ID: [id number]. NOTE: For mammograms, a report in lay terms will be sent to the patient. Approximately 15% of breast malignancies will not be visualized mammographically. In the management of a palpable breast mass, a negative mammogram must not discourage biopsy of a clinically suspicious lesion. Electronically Signed By: Annabelle siddiqui/sea:07/14/2023 14:24:05 letter sent: Normal Exam ACR BI-RADS Category 1: Negative 3341F
== END ==
PROVIDERS: PCP Registered Nurse Diabetes Educator; Referring Provider Registered Nurse Diabetes Educator; Visit Provider Registered Nurse Diabetes Educator
DX: Z12.31 Encounter for screening mammogram for malignant neoplasm of breast (principal); R92.333 Mammographic heterogeneous density, bilateral breasts
CPT/HCPCS: 77063; 77067

== ENCOUNTER 2023-10-10 21:17 | Emergency (ER) | payer OTHER, SELFPAY ==
[2023-10-10 21:37] VITALS: BP 114/55; PULSE 57; RESP 16; TEMP 36.6; O2SAT 97; BMI 25.9
--- NOTE | 2023-10-10 23:21 | ED.ANIMALBIT ---
HPI - Animal Bite General Chief Complaint: Animal Bite Stated Complaint: bit by a tik, has sore and bruise Time Seen by Provider: 10/10/23 22:52 Source: patient Mode of arrival: Family Vehicle History of Present Illness HPI narrative: 58-year-old female presents for evaluation after tick bite. Patient states that she was getting ready for bed and notice a sore spot on her abdomen. She noticed a tick on her belly, which she removed and crushed in a plastic bag. She does not know how long the tick was present. She states that she has had lots of troubles with ticks in her yd. She reports pain and bruising at the site of the tick bite. She plans to send the tick in to the health department for evaluation, but is concerned and wants to make sure that there was nothing else needs to be done following the bite Related Data Home Medications Medication Instructions Recorded Confirmed celecoxib 200 mg capsule (Celebrex) 200 mg PO BID 04/07/23 05/19/23 Previous Rx's Medication Instructions Recorded methylphenidate HCl 20 mg tablet 40 mg (2 x 20 mg) PO QAM #60 tabs 04/07/23 methylphenidate HCl 20 mg tablet 40 mg (2 x 20 mg) PO QAM #60 tabs 04/07/23 methylphenidate HCl 20 mg tablet 40 mg (2 x 20 mg) PO QAM #60 tabs 04/07/23 estradiol 10 mcg vaginal tablet 10 mcg vaginal DAILY 2 weeks #30 05/19/23 (Yuvafem) tabs Allergies Allergy/AdvReac Type Severity Reaction Status Date / Time amoxicillin [AMOXICILLIN] Allergy Mild Rash Verified 05/19/23 14:58 Patient History Medical History Fibromyalgia Gastroduodenitis ADD (attention deficit disorder) Abdominal pain Colon cancer screening Insect bites Reactive arthritis Shoulder pain Ovarian cyst, right 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) Surgical History History of left salpingo-oophorectomy (2007) History of breast augmentation (2003) Status post hysterectomy with oophorectomy (04/2009) Family History Father Hypertension Hyperlipidemia Colon cancer Mother Age: 82 Tobacco abuse Grandmother Bone cancer Social History household members: none Smoking Status: Never smoker alcohol intake: current substance use type: does not use Smoking Status: Never smoker alcohol intake frequency: a few times a month Substance Use Type: does not use Exam Initial Vital Signs Initial Vital Signs: Vital Signs Temperature 97.9 F 10/10/23 21:37 Pulse Rate 57 L 10/10/23 21:37 Respiratory Rate 16 10/10/23 21:37 Blood Pressure 114/55 L 10/10/23 21:37 Pulse Oximetry 97 10/10/23 21:37 Oxygen Delivery Method Room Air 10/10/23 21:37 Const: Awake, alert, no acute distress, nontoxic appearing Skin: Warm, Dry, small, thumb print sized bruise over left lower abdomen, no evidence of retained tick particles Neuro: AO x3, CN II-XII grossly intact, moves all extremities Course Orders Ordered: Discontinued Medications Doxycycline Hyclate (Doxycycline Hyclate 100 Mg Tablet) 200 mg PO NOW ONE Stop: 10/10/23 23:21 Last Admin: 10/10/23 23:35 Dose: 200 mg Documented By: GC Vital Signs Vital signs: Vital Signs - 8 hr 10/10/23 21:37 Temperature 97.9 F Pulse Rate 57 L Respiratory Rate 16 Blood Pressure 114/55 L Pulse Oximetry 97 Oxygen Delivery Method Room Air MDM - Animal Bite MDM Narrative Medical decision making narrative: Tick bite of unknown duration. There is a small brown tick in a plastic bag without any obvious markings. Out of precaution a single prophylactic dose of 200 mg of doxycycline given to patient. Discharge Plan Departure Patient Disposition: Home Clinical Impression: Tick bite of abdomen Instructions: How to Remove a Tick, Protect Yourself from Tickborne Illnesses Activity Restrictions/Additional Instructions: You were seen for a tick bite on your abdomen. You were given a prophylactic, 1 time dose of doxycycline, which should help to prevent Lyme disease. We have a low overall incidents of Lyme disease in [facility], but I do recommend that you send the tick in as you initially planned. Prescriptions: No Action celecoxib [Celebrex] 200 mg capsule 200 mg PO BID methylphenidate HCl 20 mg tablet 40 mg PO QAM Qty: 60 0RF methylphenidate HCl 20 mg tablet 40 mg PO QAM Qty: 60 0RF methylphenidate HCl 20 mg tablet 40 mg PO QAM Qty: 60 0RF estradiol [Yuvafem] 10 mcg tablet 10 mcg vaginal DAILY 14 Days Qty: 30 3RF Rx Instructions: 1 tab in the vagina daily for 2 wks and then twice a week Referrals: Jaron Levine ARNP [Primary Care Provider] - Stand Alone Forms: Patient Portal/API
[2023-10-10] MEDS: DOXYCYCLINE HYCLATE 100 MG TABLET 200 MG PO (23:35)
[2023-10-10 23:51] VITALS: BP 114/68; PULSE 70; RESP 16; TEMP 36.6; O2SAT 99
== END 2023-10-10 23:53 | disposition home or self-care (01) ==
PROVIDERS: Emergency Provider Emergency Medicine; PCP Registered Nurse Diabetes Educator
DX: S30.861A Insect bite (nonvenomous) of abdominal wall, initial encounter (principal); W57.XXXA Bitten or stung by nonvenomous insect and other nonvenomous arthropods, initial encounter
CPT/HCPCS: 99283

== ENCOUNTER → 2024-07-26 16:40 | Outpatient (CLI) | payer OTHER, SELFPAY ==
--- NOTE | 2024-07-26 16:41 | DI.MG.S_ITS ---
MM screening mammo implant BI: 07/26/2024. BI-RADS: 2 CLINICAL: 58-year old female for bilateral screening mammogram. Tyrer-Cuzick lifetime risk of 8.7%. No personal or first-degree family history of breast cancer. The patient has bilateral implants. PRIOR EXAMS 07/13/2023, 07/09/2022, 05/23/2021, 11/28/2020, 06/04/2020, 05/01/2020, 04/25/2019, 03/15/2018, 12/25/2016, 07/08/2016, 11/22/2015, 11/13/2015, 11/10/2014. MAMMOGRAPHY TECHNIQUE: 2D and 3D (tomosynthesis) digital mammographic views obtained, with additional images as needed for full coverage. Current study was also evaluated with a Computer Aided Detection (CAD) system. DENSITY C. The breasts are heterogeneously dense, which may obscure small masses. IMPLANTS Breast implants present. MAMMOGRAPHY FINDINGS Bilateral: There are no suspicious masses, calcifications, or other findings in the breast. IMPRESSION: * No evidence of malignancy with benign findings. RECOMMENDATIONS Bilateral * Annual screening mammography. OVERALL ASSESSMENT CATEGORY BI-RADS-2: Benign. The [employer] recommends annual screening mammography beginning at age 40 for women with average risk of breast cancer. ELECTRONICALLY SIGNED: Edilberto Braxton M.D. on 07/27/2024 at 06:53:10 AM PT Interpreting Station ID: [id number]
== END ==
LOC: MAMMO 16:41
PROVIDERS: PCP Registered Nurse Diabetes Educator; Referring Provider Registered Nurse Diabetes Educator; Visit Provider Registered Nurse Diabetes Educator
DX: Z12.31 Encounter for screening mammogram for malignant neoplasm of breast (principal); R92.333 Mammographic heterogeneous density, bilateral breasts; Z98.82 Breast implant status
CPT/HCPCS: 77063; 77067